=== PATIENT | male | born 1960 | race Caucasian/White ===

== ENCOUNTER → 2016-12-24 | Outpatient (CLI) | payer BC ==
[~2016-12-24] MED LIST: ADVIN25050 INH; ALLERGY SHOT; BUDESUS; SNG10 PO
== END | disposition home or self-care (01) ==
LOC: C.LAB 12:07
PROVIDERS: ATTEND Urology
DX: R31.29 Other microscopic hematuria (principal); N40.1 Benign prostatic hyperplasia with lower urinary tract symptoms

== ENCOUNTER → 2017-10-18 | Outpatient (CLI) | payer BC ==
--- NOTE | 2017-10-18 08:21 | DIAGNOSTIC IMAGING REPORT ---
(BARIUM SWALLOW) ESOPHAGUS CLINICAL HISTORY: 57 years-old Male presenting with CHRONIC COUGH. TECHNIQUE: A standard air contrast barium esophagram is performed. Multiple spot images of the esophagus are acquired both upright and prone. COMPARISON: None. FINDINGS: The patient was able to ingest barium and the barium pill without difficulty. Normal mucosal pattern. No evidence of intrinsic or extrinsic mass lesion. No aspiration observed. The gastroesophageal junction distended normally. No gastroesophageal reflux could be elicited despite provocative maneuvers. Intraesophageal reflux noted as well as tertiary contractions. Fluoroscopy dosage (mGy): Not available. Fluoroscopy time: 1.5 minutes. Number of fluoroscopic spot images: 25. IMPRESSION: Intraesophageal reflux with tertiary esophageal contractions suggest dysmotility, possibly presbyesophagus. Otherwise normal fluoroscopic examination of the esophagus. Electronically signed by: Tay Wood M.D. 10/18/2017 8:19 AM Dictated Date/Time: 10/18/2017 7:49 AM
== END | disposition home or self-care (01) ==
LOC: C.RAD 07:05
PROVIDERS: ATTEND Internal Medicine
DX: R05 Cough (principal)

== ENCOUNTER 2020-12-30 05:37 | Observation (INO) ==
--- NOTE | 2020-12-09 14:42 | PAT Medication Instructions ---
Medication Instructions Date of Service December 09, 2020 Home Medications atorvastatin 20 mg tablet 40 mg PO QPM montelukast 10 mg tablet 10 mg PO QPM Katerina Otc 1 tab PO QID albuterol sulfate [Ventolin HFA] 2 puff INHALATION 6XD PRN budesonide-formoterol [Symbicort] 2 puff INHALATION BID gabapentin 300 mg PO TID tamsulosin 0.4 mg PO QAM STOP taking 2 weeks before surgery If surgery is within 2 weeks, stop taking as soon as possible. Katerina Otc 1 tab PO QID Take morning of surgery With a small sip of water, OTHERWISE NOTHING TO EAT OR DRINK AFTER MIDNIGHT: albuterol sulfate [Ventolin HFA] 2 puff INHALATION 6XD PRN (if needed, and bring with you to the hospital) budesonide-formoterol [Symbicort] 2 puff INHALATION BID gabapentin 300 mg PO TID tamsulosin 0.4 mg PO QAM Take evening before surgery atorvastatin 20 mg tablet 40 mg PO QPM montelukast 10 mg tablet 10 mg PO QPM albuterol sulfate [Ventolin HFA] 2 puff INHALATION 6XD PRN (if needed) budesonide-formoterol [Symbicort] 2 puff INHALATION BID gabapentin 300 mg PO TID Other Notes If you have any questions please call us at [phone] or [phone] or [phone] or [phone]
--- NOTE | 2020-12-16 10:36 | Anesthesiology Consultation ---
Date of Service December 16, 2020 Assessment & Plan (1) Encounter for pre-operative examination: COVID screening: Per assessment on 12/16: Travel screen negative, no known COVID- 19 positive contacts or current COVID-19 related symptoms. Patient fully vaccinated. Surgeon arranging preop COVID testing. Awaiting results. Chart Review Chart Review: Acceptable Risk for Surgery and Patient seen in Pre Admission Testing Teaching & Discussion Pre-Anesthesia Teaching/Discussion Notes: Instructed NPO after midnight before surgery,except medications with 15 cc of water. Medication instructions provided according to the PAT guidelines. History Surgery Operation Date: 12/30/20 07:45 Proposed Procedures p C4-C5 Anterior Cervical Discectomy and Fusion, Spinal Cord Monitoring - Ricci Keller DO Height/Weight Height: 5 ft 7 in Weight: 94.2 kg Allergies Allergy/AdvReac Type Severity Reaction Status Date / Time animal dander Allergy Unknown Asthma Verified 12/16/20 15:37 flare mold Allergy Unknown Asthma Verified 12/16/20 15:37 flare No Known Allergies Allergy Unknown Verified 12/08/20 07:57 Dust Allergy Unknown Asthma Uncoded 12/16/20 15:37 flare Medications Home Medications Medication Instructions Recorded Confirmed Last Taken atorvastatin 20 mg tablet 80 mg PO QPM 08/11/20 12/16/20 Unknown montelukast 10 mg tablet 10 mg PO QPM 08/11/20 12/08/20 Unknown Katerina Otc 1 tab PO QID 12/08/20 12/08/20 Unknown albuterol sulfate [Ventolin HFA] 2 puff INHALATION 6XD PRN 12/08/20 12/08/20 Unknown budesonide-formoterol [Symbicort] 2 puff INHALATION BID 12/08/20 12/08/20 Unknown gabapentin 300 mg PO TID 12/08/20 12/08/20 Unknown tamsulosin 0.4 mg PO QAM 12/08/20 12/08/20 Unknown Past Medical History Medical History Asthma stable Hyperlipidemia Meatal stenosis Renal carcinoma s/p right nephrectomy (1999) Exercise / Class Metabolic Activity II 4-5 Yardwork/Stairs/Walk up hill (one flight of stairs (no chest pain, no sob)) Past Family History Family History Mother Breast cancer Diabetes Brother Diabetes Sister Diabetes Other Heart disease Past Surgical History Surgical History H/O hernia repair Left inguinal History of colonoscopy History of esophagogastroduodenoscopy (EGD) History of nasal surgery History of neck surgery Fusion History of nephrectomy Right Past Anesthesia History No Hx of Anesthesia Complications and No Family Hx of Anesthesia Complications History of PONV No Hx of PONV and No Hx of Motion Sickness STOP BANG Total 5 Social History Smoking Status: Never smoker Do You Dip or Chew Tobacco: No (Quit 8 years ago) Hx Alcohol Use: Yes Alcohol type: beer and hard liquor alcohol intake frequency: a few times a month Hx Substance Use: No Review of Systems Rare snoring. No witnessed apnea events. Patient denies chest pain, shortness of breath, dyspnea on exertion, fever, chills, cough, wheezing, palpitations. Physical Exam Vital Signs VITALS BP 121/84 P 69 TEMP 98.4 SP02 96%RA RESP 16 PHYSICAL Full cervical extension range of motion. Full TMJ range of motion. TMD 4 finger breaths Mallampati Score 4 (small oral opening) Dentition: intact, left upper side implant Lungs: clear throughout to auscultation Cardiac: regular rate and rhythm, no murmurs noted Spine: normal Carotid arteries: negative bruit Extremities: no edema Lab Results Anesthesia Preop Results Results Anesthesia Widget: WBC 8.08 K/uL (4.8-10.8) 12/16/20 Hgb 15.9 g/dL (14.0-18.0) 12/16/20 Hct 47.3 % (42-52) 12/16/20 Plt 198 K/uL (130-400) 12/16/20 Na 141 mmol/L (136-145) 12/16/20 K 4.2 mmol/L (3.5-5.1) 12/16/20 Cl 111 mmol/L (98-107) H 12/16/20 CO2 23 mmol/L (21-32) 12/16/20 BUN 15 mg/dl (7-18) 12/16/20 Creat 1.17 mg/dl (0.6-1.4) 12/16/20 Glucose Level 104 mg/dl (70-99) H 12/16/20 PT 9.8 Seconds (9.0-12.0) 12/16/20 PTT 23.3 Seconds (21.0-31.0) 12/16/20 INR 1.0 (0.9-1.1) 12/16/20 Urine Color Yellow 12/16/20 Urine Appearance Clear (Clear) 12/16/20 Urine pH 5.0 (4.5-7.5) 12/16/20 Urine Specific [place] 1.018 (1.000-1.030) 12/16/20 Urine Protein Negative (Negative) 12/16/20 Urine Glucose (UA) Negative (Negative) 12/16/20 Urine Ketones Negative (Negative) 12/16/20 Urine Blood Negative (Negative) 12/16/20 Urine Nitrite Negative (Negative) 12/16/20 Urine Bilirubin Negative (Negative) 12/16/20 Urine Urobilinogen Negative (Negative) 12/16/20 Urine Leukocyte Esterase Negative (Negative) 12/16/20 Blood Type A Positive 12/16/20 Antibody Screen NEGATIVE 12/16/20 Testing Electrocardiogram Date: 12/16/20 Findings: + NSR @ (67) Chest X-Ray Date: 12/16/20 FINDINGS: The cardiac and mediastinal contours remain stable. There is no failur e. There is no focal pulmonary consolidation. There are no pleural effusions. Postsurgical changes are present within the cervical spine. Degenerative changes are present within the AC joint. IMPRESSION: No active disease in the chest.
[2020-12-30] MEDS ORDERED: ACETAMINOPHEN 500 MG TAB PO SCH (06:00)
[2020-12-30] MEDS ORDERED: CeleBREX 200 MG CAP PO SCH (06:00)
[2020-12-30] MEDS ORDERED: LR 15ML/HR IV SCH (06:00)
[2020-12-30] MEDS ORDERED: GABAPENTIN 600 MG DOSE PO SCH (06:00)
[2020-12-30] MEDS ORDERED: ceFAZolin 2000MG 2,000 MG/15 ML SYR IV SCH (06:00)
[2020-12-30] MEDS ORDERED: NEOSTIGMINE METHYLSULFATE 1 MG/ML 10ML VIAL ONE (07:04)
[2020-12-30] MEDS ORDERED: ROCURONIUM BROMIDE 10 MG/ML 5 ML VIAL IV ONE ×2 (07:04→08:29)
[2020-12-30] MEDS ORDERED: GLYCOPYRROLATE 0.2 MG/ML VIAL ONE (07:04)
[2020-12-30] MEDS ORDERED: LIDOCAINE 2% 2 ML VIAL/AMP(20MG/ML) INFIL ONE (07:04)
[2020-12-30] MEDS ORDERED: ONDANSETRON INJ 2 MG/ML 2 ML VIAL ONE (07:04)
[2020-12-30] MEDS ORDERED: DEXAMETHASONE SOD INJ 4 MG/ML VIAL ONE (07:04)
[2020-12-30] MEDS ORDERED: PROPOFOL IV EMULSION 10 MG/ML 20 ML VIAL IV ONE ×2 (07:04→08:32)
[2020-12-30] MEDS ORDERED: MIDAZOLAM HCL 1 MG/ML 2ML VIAL ONE (07:05)
[2020-12-30] MEDS ORDERED: fentaNYL citrate 100 MCG/2 ML VIAL ONE ×2 (07:05→08:27)
[2020-12-30] MEDS ORDERED: HYDROmorphone INJ 2 MG/ML SYR/VIAL ONE (07:09)
--- NOTE | 2020-12-30 07:29 | History & Physical Bridge Note ---
Date of Service December 30, 2020 History & Physical Bridge Note I have examined the patient, reviewed the History & Physical and in the interval since the performance of the History & Physical I have noted the following changes of clinical significance: no changes noted
--- NOTE | 2020-12-30 07:31 | History & Physical Report ---
Date of Service December 30, 2020 Assessment & Plan (1) Herniation of cervical intervertebral disc with radiculopathy: Admission and Anticipated Discharge Date Admission Date: C4-C5 anterior cervical discectomy and fusion History of Present Illness Chief Complaint: Neck and arm pain Primary Care Provider: Jeimy Tellez MD This is a 60-year-old male presents with car persistent neck and arm symptoms after failing course of nonoperative care is here for surgical invention. Allergies Allergy/AdvReac Type Severity Reaction Status Date / Time animal dander Allergy Unknown Asthma Verified 12/30/20 06:20 flare mold Allergy Unknown Asthma Verified 12/30/20 06:20 flare No Known Allergies Allergy Unknown Verified 12/30/20 06:20 Dust Allergy Unknown Asthma Uncoded 12/30/20 06:20 flare Home Medications Medication Instructions Recorded Confirmed Type atorvastatin 20 mg tablet 80 mg PO QPM 08/11/20 12/30/20 History montelukast 10 mg tablet 10 mg PO QPM 08/11/20 12/30/20 History Katerina Otc 1 tab PO QID 12/08/20 12/30/20 History albuterol sulfate [Ventolin HFA] 2 puff INHALATION 6XD PRN 12/08/20 12/30/20 History budesonide-formoterol [Symbicort] 2 puff INHALATION BID 12/08/20 12/30/20 History gabapentin 300 mg PO TID 12/08/20 12/30/20 History tamsulosin 0.4 mg PO QAM 12/08/20 12/30/20 History Past Med/Surg History Medical History Asthma stable Hyperlipidemia Meatal stenosis Renal carcinoma s/p right nephrectomy (1999) Surgical History H/O hernia repair Left inguinal History of colonoscopy History of esophagogastroduodenoscopy (EGD) History of nasal surgery History of neck surgery Fusion History of nephrectomy Right Family History Mother Breast cancer Diabetes Brother Diabetes Sister Diabetes Other Heart disease Social History (Updated 12/08/20 @ 08:28 by Jihan Arrieta RN) Smoking Status: Never smoker Tobacco Type: Smokeless Tobacco (Dip or Chew) Second Hand Exposure: Yes (ANDER SMOKES/PARENTS SMOKED); Do You Dip or Chew Tobacco: No (Quit 8 years ago); Hx Alcohol Use: Yes Alcohol type: beer and hard liquor Hx Substance Use: No Preferred Language: Irish Communication Ability: Effective Aco Coordinator Required: No Beliefs That Will Affect Care: None marital status: Current Living Situation: Significant Other current occupational status: employed 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
[2020-12-30] MEDS ORDERED: SUCCINYLCHOLINE CHLORIDE 20 MG/ML 10 ML VIAL IV ONE (08:10)
[2020-12-30] MEDS ORDERED: ePHEDrine sulfate 50 MG/ML AMP IV PRN (08:24)
[2020-12-30] MEDS ORDERED: ONDANSETRON INJ 2 MG/ML 2 ML VIAL IV PRN ×2 (08:24→10:50)
[2020-12-30] MEDS ORDERED: ATROPINE SULFATE 0.1 MG/ML 10ML SYR IV PRN (08:24)
[2020-12-30] MEDS ORDERED: HYDROmorphone INJ 2 MG/ML SYR/VIAL IV PRN (08:24)
[2020-12-30] MEDS ORDERED: FLOSEAL HEMOSTATIC MATRIX 10ML TOP ONE (08:31)
[2020-12-30] MEDS ORDERED: SUGAMMADEX SODIUM 200 MG/2 ML VIAL IV ONE (08:52)
--- NOTE | 2020-12-30 09:10 | Operative Report ---
Post Operative Report Pre & Post Diagnosis Operation Date: 12/30/20 07:45 Pre-Op Diagnosis: Spinal Stenosis, Cervical Region Post-Op Diagnosis: Spinal Stenosis, Cervical Region I identified the patient and participated in the time-out.: Yes Procedure Operation Date: 12/30/20 07:45 Actual Procedures #1 anterior cervical discectomy with bilateral foraminotomies C4-C5. #2 anterior cervical arthrodesis C4-C5 per #3 placement of globus stand-alone 8 mm cage filled with I factor C for C5. Surgeon Ricci Keller, [facility] Olivia Merino Estimated Blood Loss 10 Findings Consistent with Post-Op Diagnosis Specimens None Indications This is a 60-year-old male who presents above-mentioned diagnosis after failing course of nonoperative care is here for the above-mentioned seizure. Description of Procedure Patient was met with identified informed consent obtained. 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 All bony prominences well-padded eyes inspected to ensure no external pressure placed upon the. This point anterior cervical spine was prepped and draped in a sterile fashion. The assistance of fluoroscopy the C4-C5 displacement identified a transverse incision was placed along the right anterior aspect of the cervical spinal lines region. Sharp dissection with the assistance of bipolar cautery was performed down to and exposing the anterior cervical spine at C4-C5. Self-retaining retractors placed. Then performed a complete discectomy of C4-5 out to the uncovertebral joints bilaterally. [place] distracting pins utilized to assist in visualization. Removed all posterior annular fibers longitudinal ligament bilateral foraminotomies performed. Endplates were then burred to subcortical being bone and a globus coalition bony cage was tapped in position. Was filled with I factor. Was screwed into place. The incision was then copiously irrigated explored to ensure no damage to surrounding structures remaining bleeding. 10 round EDWARDO drain inserted. The incision was then closed with 2 Vicryl in the fashion of 4 Monocryl for final skin closure. Steri-Strip sterile dressings placed. Patient will continue to PACU stable condition. Please note spinal cord monitoring was utilized at the procedure no changes noted. Lastly Olivia Merino was present at the entire surgery involved the patient positioning complex portions of the surgery and final skin closure. I attest to the content of the Intraoperative Record and any orders documented therein. Any exceptions are noted below.
[2020-12-30] MEDS ORDERED: ALBUTEROL HFA INHALER 8.5 GM ONE (09:26)
[2020-12-30] MEDS: fentaNYL citrate 100 MCG/2 ML VIAL IV PRN ×2 (10:05→10:10)
--- NOTE | 2020-12-30 10:34 | Anesthesiology Progress Note ---
Date of Service December 30, 2020 Anesthesia Post Procedure Vital Signs Vital Signs: Temp Pulse Pulse Resp BP Pulse Ox 12/30/20 10:15 36.4 C L 87 19 151/93 H 95 12/30/20 10:05 36.4 C L 79 22 143/96 H 96 12/30/20 09:55 36.4 C L 81 13 155/92 H 96 12/30/20 09:45 70 12 139/92 95 12/30/20 09:35 80 16 155/91 H 97 12/30/20 09:25 92 H 15 142/91 H 99 12/30/20 09:18 36.5 C 84 16 156/88 H 98 12/30/20 06:36 36.8 C 78 18 167/93 H 97 Pain Intensity Anterior Neck: Pain Intensity: 6 Transfer of Care Handoff Completed per policy Notes Mental Status: alert / awake / arousable and participated in evaluation Patient Amnestic to Procedure: Yes Nausea / Vomiting: adequately controlled Pain: adequately controlled Airway Patency, RR, SpO2: stable & adequate BP & HR: stable & adequate Hydration State: stable & adequate Anesthetic Complications: no major complications apparent and Pt Satisfied with anesthetic care Notes: pt is a difficult airway. multiple glidescop attempts. easy mask ventilation, but desaturates quickly
--- NOTE | 2020-12-30 10:45 | Fluoroscopy Report ---
FL cervical 2-3V CLINICAL HISTORY: ACDF C4-5 COMPARISON STUDY: None FLUOROSCOPY TIME: 13 seconds. NUMBER OF FLUOROSCOPIC IMAGES: 3 FINDINGS: Fluoroscopy intraoperative imaging shows ACDF metallic hardware projecting into anatomical region of C4 and C5. Partial visualized ET tube is seen. IMPRESSION: As above. ACT 112: Negative or not required by law. The above report was generated using voice recognition software. It may contain grammatical, syntax o r spelling errors. Electronically signed by: Renata Potter DO 12/30/2020 10:44 AM
[2020-12-30] MEDS ORDERED: SOD PHOSPHATE/SOD BIPHOSPHATE ENEMA 132 ML BTL PR PRN (10:50)
[2020-12-30] MEDS ORDERED: RACEPINEPHRINE 2.25% NEBU SOLN 0.5 ML VIAL INH PRN (10:50)
[2020-12-30] MEDS ORDERED: METOCLOPRAMIDE HCL INJ 5 MG/ML 2 ML VIAL IV PRN (10:50)
[2020-12-30] MEDS ORDERED: FAMOTIDINE 20 MG TAB PO PRN (10:50)
[2020-12-30] MEDS ORDERED: diphenhydrAMINE Capsule 25 MG CAP PO PRN (10:50)
[2020-12-30] MEDS ORDERED: DO NOT ADMINISTER PNEUMOCOCCAL VACCINE PRN (10:50)
[2020-12-30] MEDS ORDERED: traMADol HCL 50 MG TABLET PO PRN (10:50)
[2020-12-30] MEDS ORDERED: NALOXONE HCL 0.4 MG/1 ML VIAL/CARP IV PRN (10:50)
[2020-12-30] MEDS ORDERED: ACETAMINOPHEN 500 MG TAB PO PRN (10:50)
[2020-12-30] MEDS ORDERED: ONDANSETRON 4 MG OD TAB PO PRN (10:50)
[2020-12-30] MEDS ORDERED: LORazepam 0.5 MG/1 ML VIAL IV PRN (10:50)
[2020-12-30] MEDS ORDERED: PROMETHAZINE HCL 12.5 MG in SODIUM CHLORIDE 0.9% 50 ML IV PRN (10:50)
[2020-12-30] MEDS ORDERED: ALUMINUM/MAGNESIUM SUSP 30 ML UDC PO PRN (10:50)
[2020-12-30] MEDS ORDERED: ALBUTEROL HFA 8 GM INHALER INH PRN (10:50)
[2020-12-30] MEDS ORDERED: HYDROmorphone INJ 0.5 MG/0.5 ML SYR IV PRN (10:50)
[2020-12-30] MEDS ORDERED: MAGNESIUM HYDROXIDE SUSP 30 ML UDC PO PRN (10:50)
[2020-12-30] MEDS ORDERED: dexAMETHasone 8 MG in SYRINGE 0 ML IV PRN (10:50)
[2020-12-30] MEDS ORDERED: DO NOT ADMINISTER FLU VACCINE PRN (10:50)
[2020-12-30] MEDS ORDERED: hydrOXYzine HCl 25 MG TAB PO PRN (10:50)
[2020-12-30] MEDS ORDERED: LORazepam 0.5 MG TAB PO PRN (10:50)
[2020-12-30] MEDS: oxyCODONE HCL IR 5 MG TAB (IMMEDIATE RELEASE) PO PRN (11:19)
[2020-12-30] MEDS: LACTATED RINGER'S 1,000 ML IV SCH ×2 (11:21→18:02)
[2020-12-30] MEDS: HYDROmorphone INJ 1 MG/ML SYRINGE IV PRN ×4 (11:56→21:32)
[2020-12-30] MEDS: ceFAZolin 2000MG 2,000 MG/15 ML SYR IV SCH ×2 (14:16→21:41)
[2020-12-30] MEDS: GABAPENTIN 300 MG CAP PO SCH ×2 (14:16→20:56)
[2020-12-30] MEDS: ACETAMINOPHEN 1,000 MG/100 ML VIAL IV PRN ×2 (14:23→23:04)
[2020-12-30] MEDS ORDERED: MONTELUKAST SODIUM 10 MG TABLET PO SCH (21:00)
[2020-12-30] MEDS ORDERED: DOCUSATE SODIUM/SENNA 50/8.6MG TAB PO SCH (21:00)
[2020-12-30] MEDS ORDERED: ATORVASTATIN 40 MG TAB PO SCH (21:00)
[2020-12-30] MEDS: FLUTICASONE/VILANTEROL 200/25MCG 14 PUFFS/INHALER INH SCH (21:35)
[2020-12-31] MEDS: oxyCODONE HCL IR 5 MG TAB (IMMEDIATE RELEASE) PO PRN ×3 (00:05→11:47)
[2020-12-31] MEDS: LACTATED RINGER'S 1,000 ML IV SCH (00:54)
[2020-12-31] MEDS: POLYETHYLENE (MIRALAX) 17 GM PACK PO SCH ×2 (05:29→11:48)
[2020-12-31] MEDS: GABAPENTIN 300 MG CAP PO SCH (08:54)
[2020-12-31] MEDS: FLUTICASONE/VILANTEROL 200/25MCG 14 PUFFS/INHALER INH SCH (08:54)
[2020-12-31] MEDS ORDERED: TAMSULOSIN HCL 0.4 MG CAP PO SCH (09:00)
--- NOTE | 2020-12-31 12:27 | Discharge Summary ---
Date of Service December 31, 2020 Admission HPI Per Admitting Provider This is a 60-year-old male presents with car persistent neck and arm symptoms after failing course of nonoperative care is here for surgical invention. Principal Diagnosis Cervical radiculopathy Discharge Data Allergies Allergy/AdvReac Type Severity Reaction Status Date / Time animal dander Allergy Unknown Asthma Verified 12/30/20 06:20 flare mold Allergy Unknown Asthma Verified 12/30/20 06:20 flare No Known Allergies Allergy Unknown Verified 12/30/20 06:20 Dust Allergy Unknown Asthma Uncoded 12/30/20 06:20 flare Procedures Performed Operation Date: 12/30/20 07:45 Actual Procedures p C4-C5 Anterior Cervical Discectomy and Fusion with Spinal Cord Monitoring(Not Applicable) - Ricci Keller DO Ordered Studies 12/30/20 07:45 [place] cervical 2-3V Routine Hospital Course (1) Herniation of cervical intervertebral disc with radiculopathy: Patient 1 intracervical discectomy and fusion tolerates well second orthopedic for possibly. Postop day 1 of swallowing well no hoarseness arm symptoms markedly improved. EDWARDO drain decreasing probably. Excellent strength testing. Socially discharged home. Discharge orders instructions from the chart for further review. Total Time Total Time Spent Total Time Spent (In Minutes): 20 minutes Discharge Plan Discharge Items Patient Disposition: Home - Self-Care Reason For Visit: Spinal Stenosis, Cervical Region Discharge Diagnosis: Cervical stenosis with radiculopathy Activity: As commented below Non-emergency contact: Primary Care Provider Call non-emergency contact if: you have any medication questions Follow-up/Referrals: Jeimy Tellez MD [Primary Care Provider] - Diet: Regular Addtl Attending Provider Instructions: ACTIVITY RECOMMENDATIONS: SELF CARE INSTRUCTIONS AFTER CERVICAL FUSIONS 1. No smoking. Smoking drastically decreases the chance of a solid fusion. 2. No bending, lifting more than 5 pounds, or twisting (roll like a log when turning in bed). 3. You may shower 3 days after surgery. Thoroughly dry wound. Do not soak in the tub. 4. Cervical collar: Must be worn at all times including sleeping. You may remove the brace only to bath, eat and if you are sitting in a recliner. 5. Please walk as much as you can for exercise. Gradually increase the distance that you walk as your endurance increases. SPECIAL CARE INSTRUCTIONS: VERY IMPORTANT TO READ AND REVIEW A. Do not take any anti-inflammatory medications (i.e. Indocin, Advil, Aspirin, Naprosyn, Aleve, Motrin, etc.) as these may inhibit the chance of a solid fusion. Tylenol is okay to take. B. Your surgical incision has been closed with a cosmetic suture under the skin that will dissolve in about 6 weeks. In 14 days, you can use a pair of clean scissors and cut the suture that is left outside of the skin at the ends of your incision. C. Complications are uncommon, but please contact us if you have any signs or symptoms of: 1. wound infection (fever higher than 102.5 degrees F, redness, separation of wound, drainage, or increasing pain from the incision) 2. blood clots in legs (pain, swelling, redness and warmth in legs) 3. urinary tract infection (fever higher than 102.5 degrees, burning upon urination or increased frequency of urination) 4. nerve problems (inability to walk on your toes or heels, numbness, loss of bowel or bladder control) 5. any other symptoms that concern you. D. Please call the office at if you have any concerns or questions about your operation or recovery. MANAGING PAIN AFTER SPINAL SURGERY 1. Narcotic medication is intended for short-term use and will be provided for surgical pain. Surgical pain usually lasts for a period of 4-6 weeks. Narcotic medication includes Percocet, Vicodin, Darvocet, Tylenol #3 or Lortab. 2. Longer-term pain is more appropriately treated with non-narcotic medication such as Tylenol ES. 3. Muscle spasm is not appropriately treated with narcotics. Muscle relaxers such as Soma, Flexeril or Skelaxin can be used along with Tylenol ES. 4. Remember that we all live with some "aches and pains". This is not unusual or uncommon after an injury or as we get older. 5. We will provide appropriate medication within the normal guidelines of their prescribed use. We will also be very cautious and aware of potential abuse and extended duration of patients' medication needs. 6. Please allow 2-3 days to process refills. Prescriptions will not be mailed but must be picked up at the office. FOLLOW UP VISIT: Keep your scheduled follow-up appointment. Any questions, please call the office at . Pending Studies at Discharge: No Stand-Alone Forms: My [facility] [employer], Smoking Cessation Medications and DC Order Prescriptions: New tramadol 50 mg tablet 50 mg PO Q6H PRN (Reason: pain, moderate) Qty: 20 RF: 0 oxycodone 5 mg tablet 5 mg PO Q6H PRN (Reason: pain, severe) Qty: 20 RF: 0 Continued atorvastatin 20 mg tablet 80 mg PO QPM RF: 0 montelukast 10 mg tablet 10 mg PO QPM RF: 0 gabapentin 300 mg Capsule 300 mg PO TID RF: 0 tamsulosin 0.4 mg capsule 0.4 mg PO QAM RF: 0 albuterol sulfate [Ventolin HFA] 90 mcg/actuation Hfa Aerosol Inhaler 2 puff INHALATION 6XD PRN (Reason: Wheezing) RF: 0 budesonide-formoterol [Symbicort] 160-4.5 mcg/actuation Hfa Aerosol Inhaler 2 puff INHALATION BID RF: 0 Katerina Otc 1 tab PO QID RF: 0 Discharge Orders: Discharge Order (Routine); Ordered 12/31/20 Ordered By: Ricci Keller Admission Data Admit Date/Time: 12/30/20 09:29 Attending Provider: Ricci Keller Admit Provider: Ricci Keller Primary Care Provider: Jeimy Tellez
[2021-01-01] MEDS ORDERED: bisacodyL 10 MG SUPP PR PRN (09:11)
== END 2020-12-31 13:00 | disposition home or self-care (01) ==
LOC: ASU 05:37 → 3E 09:29 → INTOOBSV 09:29